=== PATIENT | male | born 2005 | race Hispanic/Latino ===

== ENCOUNTER 2024-10-11 20:24 | Emergency (ER) | payer BC, MEDICAID ==
[~2024-10-11] VITALS: Ht 160 cm; Wt 83.2 kg
--- NOTE | 2024-10-11 20:29 | NUR ---
UA CUP PROVIDED
[2024-10-11 22:16] LABS: APPEARANCE,URINE CLEAR (CLEAR); BILIRUBIN,URINE NEGATIVE (NEGATIVE); COLOR,URINE COLORLESS (YELLOW); GLUCOSE, URINE (UA) NEGATIVE (NEGATIVE); KETONES,URINE NEGATIVE (NEGATIVE); LEUKOCYTE ESTERASE ,URINE NEGATIVE Leu/uL (NEGATIVE); NITRATE,URINE NEGATIVE (NEGATIVE); OCCULT BLOOD,URINE MODERATE (NEGATIVE); PROTEIN,URINE NEGATIVE (NEGATIVE); UROBILINOGEN,URINE 0.2 mg/dL (0.2-1.0)
[2024-10-11 22:18] LABS: ADD UA MICROSCOPIC YES
[2024-10-11 22:19] LABS: BACTERIA,URINE FEW /HPF (None Seen); MUCUS,URINE RARE LPF (None Seen); RBC,URINE 26-50 /HPF (0-1); SQUAMOUS EPITHELIAL CELL,UR RARE /HPF (0-2)
--- NOTE | 2024-10-11 22:34 | ERN ---
General Chief Complaint: Blood in Urine: Stated Complaint: URINATING BLOOD Time Seen by MD: 20:25 Time Seen by Midlevel: 20:25 Source: patient History of Present Illness Initial Comments 19-year-old male presents to the emergency department due to noticing blood after urinating. Patient denies any blood in the urine, but states he noticed it when he wiped the penis x1 episode. Patient denies any back pain, abdominal pain, dysuria, nausea, vomiting, fevers, penile discharge, penile lesions, testicular pain or further associated symptoms. Patient denies being sexually active. Allergies: Coded Allergies: No Known Allergies (Unverified Allergy, Unknown, 10/11/24) Past Medical History Past Medical History: No Pertinent History Past Surgical History: None ROS Dictation Constitutional: Negative for fever,chills, and weight loss Eyes: Negative for injury, pain,redness, and discharge ENT: Negative for injury,pain or swelling Cardiovascular: Negative for chest pain, palpitations, and edema Respiratory: Negative for shortness of breath, cough, and wheezing, Abdomen/GI: Negative for abdominal pain, nausea, vomiting, diarrhea, and constipation Back: Negative for injury and pain : Positive for blood from the penis Negative for painful urination, bleeding or discharge MS/Extremity: Negative for injury and deformity Skin: Negative for rash, and discoloration Neuro: Negative for headache, weakness, numbness, tingling, and seizure Psych: Negative for suicide ideation, homicidal ideation, and hallucinations Physical Exam Physical Exam Dictation General: awake, alert, no acute distress Head/Face: Normocephalic, atraumatic Eyes: PERRL, EOMI, normal conjunctiva ENT: oral cavity clear, oral mucosa moist Neck: Supple, normal range of motion Cardiovascular: RRR, normal S1/S2 Respiratory: CTAB, no respiratory distress, no rales or wheezes Abdomen: Soft, non-tender, non-distended, normal bowel sounds, no guarding or rebound. : Normal testicular and penile appearance with no lesions, no erythema, no tenderness Back: No CVA tenderness Skin: Warm, dry, normal turgor, no rash MS/Extremity: Pulses equal, no cyanosis, neurovascular intact, FROM Neuro: COAx4, GCS 15, strength 5/5, CN 2-12 intact, normal cerebellar exam, normal gait Psych: Normal behavior, mood, and affect normal Results Laboratory and Microbiology Lab and Micro Result Laboratory Tests Test 10/11/24 22:04 Urine Color COLORLESS (YELLOW) Urine Appearance CLEAR (CLEAR) Urine pH 6.0 (5.0-8.0) Urine Specific [place] 1.008 (1.001-1.031) Urine Protein NEGATIVE mg/dL (NEGATIVE) Urine Glucose (UA) NEGATIVE mg/dL (NEGATIVE) Urine Ketones NEGATIVE mg/dL (NEGATIVE) Urine Occult Blood MODERATE (NEGATIVE) H Urine Nitrate NEGATIVE (NEGATIVE) Urine Bilirubin NEGATIVE mg/dL (NEGATIVE) Urine Urobilinogen 0.2 mg/dL (0.2-1.0) Urine Leukocyte Esterase NEGATIVE Danette/uL Urine RBC 26-50 /HPF (0-1) H Urine WBC 2-5 /HPF (0-1) H Urine Squamous Epithelial Cells RARE /HPF (0-2) Urine Bacteria FEW /HPF (None Seen) Labs Reviewed?: Yes MDM MDM: Differential diagnosis:19-year-old male presents to the emergency department due to noticing blood after urinating. Patient denies any blood in the urine, but states he noticed it when he wiped the penis. Patient denies any back pain, abdominal pain, dysuria, nausea, vomiting, fevers, penile discharge, penile lesions, testicular pain or further associated symptoms. Patient denies being sexually active. Per physical examination patient is in no acute distress, abdomen is soft nontender, no CVA tenderness, normal exam, vitals within normal limits. UA obtained with no indications of urinary tract infection, RBCs noted in the urine. Patient verbalized no more blood was noted upon wiping during the last urination. Patient was educated on findings and diagnosis. Advised to follow up with PCP. Return to the emergency department if any worsening symptoms. Patient verbalized understanding. Patient stable for discharge. Tests considered and ordered secondary to shared decision making include: There are no social concerns with this patient. I independently interpreted the test that were performed, results were reviewed by me and considered findings on radiology if ordered. Medical management and examination interpretation discussions were had by me with other qualified healthcare professionals as indicated for the patient's care. ED Course Orders Procedure Category Date Status Time Urinalysis Profile LAB 10/11/24 Complete 20:29 Vital Signs Date Time Temp Pulse Resp B/P (MAP) Pulse Ox O2 Delivery O2 Flow Rate FiO2 10/11/24 22:39 98.6 70 18 148/86 99 Room Air* 0 21 10/11/24 20:24 99.0 71 16 154/89 97 Room Air DX & DISP Disposition: Discharge Departure Impression: Primary Impression: Penile bleeding Additional Impression: Wellness examination Condition: Stable Additional Instructions: Discharge home. Rest. Follow up with primary care in 24 hours. Return to the ER for any acute changes or worsening symptoms. If any medications were prescribed take as directed. Okay to continue home medications unless otherwise discussed during your visit in the emergency room today. Patient was also advised to follow-up with primary care physician in 1 to 2 days for continued monitoring. Referrals: SELF,REFERRAL (PCP) I performed the substantive portion of the visit. I have reviewed and person ally made and approve the management plan that is documented in the notes by myself or the DEVEN. I acknowledge full responsibility for the patient's management plan. CALVIN FERRIS Oct 11, 2024 22:34
[2024-10-11 22:39] VITALS: BP 148/86; PULSE 70; RESP 18; TEMP 98.6; O2SAT 99
== END 2024-10-11 22:41 | disposition home or self-care (01) ==
LOC: EDH 20:24
DX: N48.89 Other specified disorders of penis (principal)
CPT/HCPCS: 81001; 99283